=== PATIENT | female | born 1950 | race Two or more races ===

== ENCOUNTER 2019-05-30 17:31 | Emergency (ER) | payer OTHER ==
[~2019-05-30] VITALS: Ht 152.4 cm; Wt 116.6 kg
[~2019-05-30 17:31] MED LIST: ACTOS30 MG PO; ADVIL200 M1; ANASTROZOLE1 GM; AROMASIN25 MG; AROMASIN25 MG PO; ASA81 MG; BENZONATATE100 MG PO; CATAFLAM50 MG PO; GLIMEPIRIDE4 MG; HYZAAR 100-251 EACH PO; HYZAAR 100-251 UDTAB PO; LIPITOR20 MG; LIPITOR20 MG PO; METFORMIN HCL500 MG; METFORMIN HYDRO25 GM MC; NEURIN; NORVASC10 MG PO; ORPH100T PO; PLAVIX75 MG; PLAVIX75 MG PO; PREDNISONE10 MG PO; PROVENTIL HFA6.7 GM IH; PROVENTIL17 G1 IH; RELAGESIC TABLE1 TAB PO; SINGULAIR 10MG10 MG PO; TRAMADOL HCL-AP1 TAB PO; TUSSI-PRES B LIQ5 ML PO; UNIPHYL400 MG; UNIPHYL600 MG PO; XANAX2 MG PO; ZOCOR40 MG; [UNRECOGNIZED DRUG - OTHER]
== END 2019-05-30 21:31 | disposition home or self-care (01) ==
LOC: ER 17:31
DX: S80.02XA Contusion of left knee, initial encounter (principal); S80.01XA Contusion of right knee, initial encounter; S40.012A Contusion of left shoulder, initial encounter; S40.011A Contusion of right shoulder, initial encounter; M54.2 Cervicalgia; E66.01 Morbid (severe) obesity due to excess calories; W18.09XA Striking against other object with subsequent fall, initial encounter; Y93.89 Activity, other specified; Y92.018 Other place in single-family (private) house as the place of occurrence of the external cause; Y99.8 Other external cause status

== ENCOUNTER 2019-07-27 13:18 | Emergency (ER) | payer OTHER ==
[~2019-07-27] VITALS: Ht 152.4 cm; Wt 116.6 kg
[2019-07-27] MEDS ORDERED: FORTAMET1000 MG (13:33)
[2019-07-27] MEDS ORDERED: NEURONTIN300 MG PO (13:33)
[2019-07-27] MEDS ORDERED: NORVASC5 MG PO (13:37)
== END 2019-07-27 22:39 | disposition home or self-care (01) ==
LOC: ER 13:18
DX: K52.89 Other specified noninfective gastroenteritis and colitis (principal)

== ENCOUNTER 2019-09-08 10:01 | Emergency (ER) | payer OTHER ==
[~2019-09-08] VITALS: Ht 149.9 cm; Wt 113.4 kg
[~2019-09-08 10:01] MED LIST changes: +FORTAMET1000 MG; +NEURONTIN300 MG PO; +NORVASC5 MG PO
== END 2019-09-08 23:57 | disposition home or self-care (01) ==
LOC: ER 10:01
DX: J45.998 Other asthma (principal)

== ENCOUNTER 2019-09-14 11:34 | Emergency (ER) | payer OTHER ==
[~2019-09-14] VITALS: Ht 152.4 cm; Wt 68.0 kg
== END 2019-09-14 18:12 | disposition home or self-care (01) ==
LOC: ER 11:34
DX: J11.1 Influenza due to unidentified influenza virus with other respiratory manifestations (principal)

== ENCOUNTER 2020-10-07 13:02 | Emergency (ER) | payer OTHER ==
[~2020-10-07] VITALS: Ht 154.9 cm; Wt 113.9 kg
== END 2020-10-07 22:52 | disposition home or self-care (01) ==
LOC: ER 13:02
DX: S00.83XA Contusion of other part of head, initial encounter (principal); S90.01XA Contusion of right ankle, initial encounter; S80.01XA Contusion of right knee, initial encounter; S40.011A Contusion of right shoulder, initial encounter; S20.213A Contusion of bilateral front wall of thorax, initial encounter; W18.39XA Other fall on same level, initial encounter; Y93.89 Activity, other specified; Y92.098 Other place in other non-institutional residence as the place of occurrence of the external cause; Y99.8 Other external cause status